=== PATIENT | female | born 1980 | race Caucasian/White ===

== ENCOUNTER 2017-04-21 02:39 | Observation (INO) | payer BC ==
[~2017-04-21] VITALS: Ht 175.3 cm; Wt 90.0 kg
--- NOTE | ~2017-04-21 | HP ---
PATIENT'S NAME: ROGERS CISNEROS [facility] AGE: 36 Y [address] ROOM: [place] [address] LOCATION: [facility] ADMIT DATE: 04/21/2017 History & Physical DISCHARGE DATE: FAMILY PHYSICIAN: Jamar Quijano MD ATTENDING PHYSICIAN: Suleiman Duenas DATE OF SERVICE: CHIEF COMPLAINT: Chest pain. HISTORY OF PRESENT ILLNESS: A 36-year-old lady with a past medical history of fibromyalgia and depression, who presented to the emergency department with the chest pain, which initially was located in the epigastrium and then traveled up to her throat tightening and pressure like. She stated like somebody sitting on her chest, it radiates to both shoulders, 8/10 initially, not relieved with the nitroglycerin or morphine or GI cocktail in the emergency department. Associated with some nausea, but no emesis. Not associated with any dizziness, diaphoresis, headache, or syncope. She denied any other abdominal complaints of known constipation, diarrhea, burning on urination, extremity swelling, trouble swallowing. She did complain that she has been feeling congested in her sinuses for many weeks now. REVIEW OF SYSTEMS: All other systems reviewed were negative except what is mentioned in the HPI. FAMILY HISTORY: No history of premature coronary artery disease. PAST MEDICAL HISTORY: Fibromyalgia and depression. MEDICATIONS: Being reconciled right now. SOCIAL HISTORY: Never a smoker. No alcohol or drug abuse. PHYSICAL EXAMINATION: VITAL SIGNS: Were reviewed and were all within normal limits. HEENT: Head; atraumatic, normocephalic. Eyes; nonicteric, no pallor. Oropharynx; moist mucous membranes. CARDIOVASCULAR: S1, S2. No murmurs, gallops, or rubs. LUNGS: Clear to auscultation bilaterally. PATIENT'S NAME: ROGERS CISNEROS [facility] AGE: 36 Y [address] ROOM: [place] [address] LOCATION: [facility] ADMIT DATE: 04/21/2017 History & Physical DISCHARGE DATE: FAMILY PHYSICIAN: Jamar Quijano MD ATTENDING PHYSICIAN: Suleiman Duenas ABDOMEN: Soft. Mild tenderness noted in the epigastrium. Bowel sounds are present. EXTREMITIES: No clubbing, cyanosis, or edema. PSYCH: Normal affect, mood, and speech. NEURO: Cranial nerves II through XII intact. No motor or sensory deficits. MUSCULOSKELETAL: No muscle tenderness or joint swelling noted. ENDOCRINE: No thyromegaly or myxedema noted. SKIN: No blemishes or bruises noted. DIAGNOSTIC DATA: Chest x-ray was done in the emergency department which was initially unremarkable. D-dimers were done which were elevated and a CT scan of the chest with PE protocol was done which did not reveal any pulmonary embolism, but did show a very small pericardial as well as bilateral pleural effusions. Lipase level was done in the emergency department which was unremarkable. Rest of the lab work was only impressive for creatinine of 1.2. ASSESSMENT: 1. Chest pain. 2. Fibromyalgia. 3. Acute kidney injury. PLAN: We are going to admit this lady for observation. At this point, etiology of chest pain is not clear at all. We will admit her for observation and get an echocardiography. In interim, we will also give her Ativan if it is anxiety related. An ERCP will be done. KRISHNA and ESR will be done as well. Regular diet. Treat her JOSUÉ with LR 150 mL/h for now. Further plan will depend on her progress in the hospital. MD IGNACIO SUÁREZ/nia /[id number] D: [id number] T: [id number] HISTORY & PHYSICAL
--- NOTE | ~2017-04-21 | ECHO ---
Transthoracic Echocardiography Report (TTE) Demographics Patient Name ROGERS CISNEROS Date of Study 04/21/2017 Patient Number [id number] Visit Number [id number] Date of 1980 Room Number G6310 Gender Female Number Age 36 year(s) Referring Stefan Bueno Reeler Operator Blossom Bills RDCS, RVT, Physician RDMS, LUBRICATION TECHNICIAN Physician Interpreting Paul Reardon Railroad Car Inspector Physician Supervising Ordering Oli Mena MD, MD/MLP Physician Nurse Stress Water Taxi Captain Conclusions Contractility Score Summary Normal Left Ventricular contractility was noted. Summary The estimated left ventricular ejection fraction is 65-70%. Normal biventricular size and function. Small posterior pericardial effusion. No obvious tamponade. Procedure Type of Study TTE procedure:2D Echocardiogram, M-Mode, Doppler , Color Doppler. Procedure Date Date: 04/21/2017 Start: 02:26 PM Study Location: Inpatient Portable Technical Quality: Adequate visualization Additional Indications:CHEST PAIN Patient Status: Routine Rhythm: NSR HR: 79 bpm BP: 115/67 mmHg M-Mode/2D Measurements LV Diastolic Dimension: 4.83 cm LV Systolic Dimension: 3.02 cm LV Septum Diastolic: 1.03 cm LV PW Diastolic: 0.71 cm AO Root Dimension: 2.7 cm AV Cusp Separation: 1.9 cm RV Diastolic Dimension: 3.35 cm LA Dimension: 3.2 cm Post Pericard Effusion: 1.2 cm LA volume: 70 ml IVC Inspiration: 0 cm RV Base: 3.5 cm RV Mid: 2.5 cm RV Length: 6.9 cm TAPSE: 2.4 cm TDI-S': 14 cm/s Doppler Measurements AV Peak Velocity: 1.43 m/s MV Peak E-Wave: 0.95 m/s AV Peak Gradient: 8.18 mmHg MV Peak A-Wave: 0.8 m/s LVOT Peak Velocity: 0.9 m/s MV E/A Ratio: 1.18 MV P1/2t: 67 msec E' Lateral Velocity: 0.13 m/s A' Septal Velocity: 0.09 m/s Findings Left Ventricle The left ventricle is normal in size . Normal left ventricular wall thickness. Diastolic assessment reveals normal relaxation. Normal systolic function with no wall motion abnormalities. Right Ventricle Normal right ventricle structure and function. Right Atrium Normal right atrial size. Mitral Valve Normal mitral valve structure and function. Aortic Valve Normal aortic valve structure and function. Tricuspid Valve Normal tricuspid valve structure and function. Insufficient tricuspid regurgitant waveform to assess pulmonary pressures. Pulmonic Valve Normal pulmonic valve structure and function. Trivial pulmonic valve regurgitation by color Doppler. Pericardial Effusion Small posterior pericardial effusion. No obvious tamponade. Mitral and tricupid inflows do not change significantly with inspiration and experation. The IVC collapse normal. Miscellaneous Visualized portions of the aortic root and ascending aorta appear normal in size. Pleural Effusion No evidence of pleural effusion. Signature dtt: ELIS SR dtd: 04/21/17 1426 Physician Self Edit
--- NOTE | ~2017-04-21 | DS ---
PATIENT'S NAME: ROGERS CISNEROS [facility] AGE: 36 Y [address] ROOM: [address] [place], [place] [address] LOCATION: [facility] ADMIT DATE: 04/21/2017 Discharge Summary DISCHARGE DATE: 04/22/2017 FAMILY PHYSICIAN: Jamar Quijano MD ATTENDING PHYSICIAN: William Baird FINAL DIAGNOSES: 1. Atypical chest pain. 2. Gastroesophageal reflux disease. 3. Acute kidney injury. 4. Fibromyalgia. 5. Pulmonary effusion and nodules on CT scan. HOSPITAL COURSE: Please see details of admission H and P by Dr. Baird. Briefly, the patient was admitted with acute onset of chest pain. The patient was seen and evaluated in the emergency room, found to have an elevated D- dimer enzyme. The patient was admitted for further workup of her chest pain. Her initial cardiac enzymes were within normal limits. Chest CT with PE protocol did not show any acute pulmonary embolus, but she did have small bilateral pleural fluid collections and small pericardial fluid collections. Also noted were small indeterminate noncalcified nodules at the lingula and lower left lobe. 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 EKG and serial troponins were within normal limits. I did check an KRISHNA, which was also negative. The patient had elevated creatinine at 1.2 on admission. The patient was given fluid resuscitation and on the day of discharge, her creatinine dropped to 1.0. The patient underwent echocardiogram, which showed normal ejection fraction at 65%-70%. She did have a small posterior pericardial effusion, but no tamponade noted. Normal biventricular size and function. Valvular and structural studies were negative. On the , the patient felt that her chest pain had significantly lessened. She was placed on a proton pump inhibitor twice daily and received two doses. Based on her negative studies and workup, it was felt the patient could continue to pursue this as an outpatient basis, and she was discharged home in stable condition. DIAGNOSTICS: As noted above. In addition, chest x-ray on the showed no active process. Cardiac silhouette within normal limits and lung beard being clear. Other laboratory data showed a sodium of 141, potassium 3.5, chloride 110, bicarb 21, glucose 107, BUN 15, creatinine 1.2. Liver functions within normal limits. Mag at 2.2. On the day of discharge, sodium was 140, potassium 3.8, chloride 109, bicarb 23, glucose 112, BUN 6, creatinine 1.0, phos was 1.5, magnesium 2.2. Hemogram on admission was completely within normal limits. Echo was reported above. PATIENT'S NAME: ROGERS CISNEROS [facility] AGE: 36 Y [address] ROOM: [place] [address] LOCATION: [facility] ADMIT DATE: 04/21/2017 Discharge Summary DISCHARGE DATE: 04/22/2017 FAMILY PHYSICIAN: Jamar Quijano MD ATTENDING PHYSICIAN: William Baird DISCHARGE INSTRUCTIONS: The patient is discharged home. She will follow up with Dr. Quijano in 1 week. Diet is as tolerated. Activity is as tolerated. It was recommended the patient have a CT scan of the chest with and without contrast in 6 months to follow up on the small noncalcified nodules in the left lobe. The patient was able to verbalize understanding and agreement of these discharge instructions and was discharged in stable condition. DISCHARGE MEDICATIONS: 1. Hydroxyzine 25 mg at bedtime. 2. Concerta 36 mg daily. 3. Protonix 40 mg daily. 4. Requip 6 mg at bedtime. 5. Zoloft 200 mg at bedtime. 6. Junel 1 mg/20 mcg 1 p.o. daily as directed. We do appreciate participating in this patient's care and thank you very much for the ability to serve her while hospitalized at [facility]. MADONNA GARCIA FOR Martha Garcia MD DEANNE/modl /[id number] CC: Jamar Quijano MD d: 04/23/17 0158 t: 04/25/17 0901, DISCHARGE SUMMARY
[2017-04-21 03:16] LABS: BASOPHIL # 0.1 K/uL (0.0-0.2); BASOPHIL % 0.7 %; EOSINOPHIL # 0.1 K/uL (0.0-0.5); EOSINOPHIL % 1.3 %; HEMATOCRIT 40.4 % (33.0-46.0); HEMOGLOBIN 13.8 g/dL (11.0-15.0); IMMATURE GRANULOCYTE % 0.4 %; LYMPHOCYTE # 1.9 K/uL (0.8-4.0); LYMPHOCYTE % 27.9 %; MCH 28.9 pg (27.0-34.0); MCHC 34.2 gm/dL (32.0-36.5); MCV 84.5 fl (83.0-98.0); MONOCYTE # 0.6 K/uL (0.0-1.0); MONOCYTE % 8.4 %; MPV 10.4 fl (9.4-12.4); NEUTROPHIL # (ANC) 4.1 K/uL (1.8-7.8); NEUTROPHIL % 61.3 %; NRBC % 0 /100WBC (0-0.00); PLATELET COUNT 284 K/uL (150-450); RBC 4.78 M/uL (3.50-5.50); RDW-CV 13.3 % (11.9-14.6); WBC 6.7 K/uL (4.0-11.0)
[2017-04-21 03:25] LABS: INR - (THERAPEUTIC) 0.93 (0.92-1.07); PROTIME 9.8 SECONDS (9.8-11.4); PTT 27 SECONDS (25-32)
[2017-04-21 03:35] LABS: ALBUMIN 3.3 gm/dL (3.5-5.0); ALK PHOS 102 IU/L (33-138); ALT 22 IU/L (12-78); ANION GAP 13.5 (10.0-19.0); AST 20 IU/L (10-40); BLOOD UREA NITROGEN 15 mg/dL (6-24); CALCIUM 8.5 mg/dL (8.5-10.5); CHLORIDE 110 mMol/L (96-110); CO2 21 mMol/L (22-32); CPK 109 IU/L (21-215); CREATININE 1.2 mg/dL (0.5-1.1); MAGNESIUM 2.2 mg/dL (1.8-2.6); POTASSIUM 3.5 mMol/L (3.7-5.1); SODIUM 141 mMol/L (135-145); TOTAL BILIRUBIN 0.2 mg/dL (0.0-1.5); TOTAL PROTEIN 7.4 g/dL (6.0-8.4)
[2017-04-21 05:25] LABS: CPK 91 IU/L (21-215)
[2017-04-21] MEDS ORDERED: ZOLOFT100 M1 PO (08:44)
[2017-04-21] MEDS ORDERED: HYDROXYZINE HCL25 MG PO (08:47)
[2017-04-21] MEDS ORDERED: REQUIP3 MG PO (08:50)
[2017-04-21] MEDS ORDERED: CONCERTA36 MG PO (08:52)
--- NOTE | 2017-04-21 17:08 | NUR ---
Significant Event: PT ADMITTED TO PCU THIS AM WITH C/O CHEST PAIN. SHE DID SAY SHE WAS SLIGHTLY SOB BUT SATS 98% ON RA. A/O STEADY ON FEET WHEN UP INDEPENDENTLY. LUNGS CLEAR, DENIED CHEST PAIN ON ARRIVAL TO PCU. SHE DOES C/O ON AND OFF OF TIGHTNESS AND FULLNESS IN HER THROAT. ECHO, LABS AND EKG DONE. NO ECHO REPORT YET. TN-I (-) SO FAR. PT HAS RESTED QUIETLY IN BED THIS SHIFT. PLEASENT AND COOPERATIVE WITH CARES. Follow up: MONITOR, PROBABLY HOME SATURDAY.
--- NOTE | 2017-04-22 04:21 | NUR ---
Significant Event: AOX3. VSS ON RA. IV TO L)HAND SL. ACTIVITY NOEL, SBA. DOES C/O HEAVINESS IN THE CHEST THAT RADIATES UP TO THROAT. "FEELS HARD TO SWALLOW." ENZYMES HAVE BEEN NEGATIVE SO FAR, ECHO REPORT NOT IN YET. Follow up: HOME TODAY?
[2017-04-22] MEDS ORDERED: JUNEL FE 1 MG-1 EACH PO (08:38)
--- NOTE | 2017-04-22 12:24 | NUR ---
D:Patient has been resting in bed. Has c/o headache this morning, the HANDICRAFTS TEACHER was into see her, and ordered some Tylenol at 1223. Patient thought this morning initially that the chest pain was better than yesterday. Had not said anything more about till now, and states that it is coming back alittle but is higher up in chest, upper chest just below throat. Reports that pain is not bad, but is slightly worse and in a different place than it was previously. P:Monitor, did let the HANDICRAFTS TEACHER know
[2017-04-22 12:28] LABS: ALBUMIN 3.2 gm/dL (3.5-5.0); ANION GAP 11.8 (10.0-19.0); CALCIUM 8.6 mg/dL (8.5-10.5); MAGNESIUM 2.2 mg/dL (1.8-2.6); POTASSIUM 3.8 mMol/L (3.7-5.1)
[2017-04-22 12:29] LABS: PHOSPHORUS 1.5 mg/dL (2.5-4.9)
--- NOTE | 2017-04-22 12:44 | NUR ---
Introduced self and care management services to patient. Lives in [place] with spouse. Independent at home. Plans on going home on discharge, denies needs. Will follow.
[2017-04-22] MEDS ORDERED: PROTONIX40 MG PO (15:31)
== END 2017-04-22 16:50 | disposition disaster alternative care site (69) ==
LOC: GMED 02:39 → GPCU 07:32
PROVIDERS: Emergency Medicine; ADMIT Internal Medicine
DX: R07.89 Other chest pain (principal); F32.9 Major depressive disorder, single episode, unspecified; M79.7 Fibromyalgia; N17.9 Acute kidney failure, unspecified; I31.3 Pericardial effusion (noninflammatory); J90 Pleural effusion, not elsewhere classified; K21.9 Gastro-esophageal reflux disease without esophagitis; Z79.899 Other long term (current) drug therapy
CPT/HCPCS: G0378; J2060; J2270; J7030; J7120; Q9967

== ENCOUNTER → 2017-05-02 | Outpatient (CLI) | payer BC ==
[~2017-05-02] MED LIST: CONCERTA36 MG PO; HYDROXYZINE HCL25 MG PO; JUNEL FE 1 MG-1 EACH PO; PROTONIX40 MG PO; REQUIP3 MG PO; ZOLOFT100 M1 PO
== END ==
LOC: GKIC 04-29 14:00 → GRAD 04-29 14:00 → GKIC 12:42
DX: R20.0 Anesthesia of skin (principal); G93.9 Disorder of brain, unspecified

== ENCOUNTER → 2017-05-09 | Outpatient (CLI) | payer BC | END | disposition disaster alternative care site (69) | LOC: GRAD 15:35 | DX: R20.0 Anesthesia of skin (principal) | CPT/HCPCS: A9577 ==